=== PATIENT | female | born 1965 | race Caucasian/White ===

== ENCOUNTER 2024-08-23 09:53 | Emergency (ER) | payer OTHER, SELFPAY ==
--- NOTE | 2024-08-23 11:00 | ED.GENMED ---
History of Present Illness
General
Chief Complaint: Musculo-Skeletal Complaint
Source: patient
Time Seen by Provider: 08/23/24 10:43
History of Present Illness
History of Present Illness:
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
resulting in right hand/thumb injury, increased pain and swelling this morning which is what prompted patient to come to the ER. Patient is right-hand dominant and no other injuries were sustained. Denies any head injury or loss of consciousness.
Past History
Past History
ED Past Medical History: Cancer (History of melanoma 2009), Hypercholesterolemia, IDDM, Psychiatric and Other (Migraines)
ED Past Surgical History: Cholecystectomy, Gynecological and Other
Patient has exhibited threatening behavior?: No
PSI?: No
Social History
Tobacco: Smoker
Alcohol: None
Drug: None
Personal: Single
Living: alone
Review of Systems
Review of Systems
All Other Systems: ROS reviewed and negative except as documented in HPI and ROS
Phy Exam
Physical Exam
Physical Exam:
GENERAL: Alert , in no apparent distress
EYE: conjunctiva clear
Head: Normocephalic atraumatic
NECK: Supple,
ENT: mmm.
LUNGS: no acute respiratory distress
NEUROLOGICAL: Alert and oriented
SKIN: Warm and dry, skin intact.
MUSCULOSKELETAL: Right upper extremity: Mild to moderate soft tissue swelling over the base of the thumb extending into the thenar eminence with tenderness directly over this area. Patient has limited range of motion of the thumb including
opposition secondary to the pain. Remainder of digits, wrist, elbow and shoulder are without any signs of trauma. Extremity is otherwise warm and well-perfused and neurovascularly intact.
PSYCH: Normal and appropriate interaction.
Scores
Heart Failure Risk
Heart Failure Risk Score: Not Applicable
Heart Score for Chest Pain Patients
STEMI patient?: Not applicable
Withdrawal Assessment of Alcohol
Withdrawal Assessment Completed?: Not applicable
Course
Orders/Labs/Results
Orders:
Orders
08/23/24 09:56
Hand, Right 3 View [CR Hand - Right Min 3 Views] Urgent
Comment:
Reason For Exam: fall
Vital Signs
Initial and Last Documented VS:
Initial Vital Signs
Pulse Resp BP Pulse Ox
86 18 130/77 98
08/23/24 11:12 08/23/24 11:12 08/23/24 11:12 08/23/24 11:12
Last Documented Vital Signs
Pulse Resp BP Pulse Ox
86 18 130/77 98
08/23/24 11:12 08/23/24 11:12 08/23/24 11:12 08/23/24 11:12
Procedures
Splinting/Sling Placement
Right Thumb:
Procedure completed by: Shree
Pre-splint extermity exam: neurovascular intact
Type of splint: thumb spica
Splint material: other (3 inch Ortho-Glass)
Splint checked by provider?: Yes
Normal distal neurovascular exam?: Yes
MDM/Problems Addressed
Differential Diagnosis Includes:
Sprain, strain, fracture, contusion
MDM/Problems Addressed:
59-year-old female presenting to the ER for evaluation of right hand/thumb injury sustained in accidental fall yesterday. There is considerable edema. X-ray ordered. Will place in splint for comfort. Anticipate need for outpatient orthopedic
follow-up.
*Radiology
Radiology exam reviewed: preliminary read by ED provider (No acute fracture)
*Pulse Oximetry
Patient hypoxic: no
*Critical Care Note
Total Time (30-74mins, 75-104mins- exclusive of procedures): Not Applicable
Patient Management
Escalation/DeEscalation of care consider admission/obs:
No fracture identified on x-ray. Patient splinted as above. Information for orthopedics provided, RICE recommendations as well as NSAIDs/Tylenol as needed for pain. Stable for discharge home.
ED Attending Note
-
Portions of this chart may have been created with voice recognition software.� Occasional wrong word or��sound alike� substitutions may have occurred due to the inherent limitations of voice recognition software.
Discharge Plan
Departure
Patient Disposition: Home (Routine Discharge)
Date of Disposition: 08/23/24
Time of Disposition: 11:00
Patient with high blood pressure during this ER visit?: No
Discharge Problem:
Sprain of hand, thumb, right
Instructions: Sprained Thumb (DC)
Prescriptions:
No Action
Fetzima 80 MG capsule,extended release 24 hr
80 mg PO DAILY
famotidine 40 MG tablet
40 mg PO HS
clonazepam 1 MG tablet
1 mg PO TID
Patient Comments:
03/24/2022: last filled 02/25/22, 90 tabs for 30 days from [id number]
topiramate 25 MG tablet
25 mg PO HS
fenofibrate micronized 200 mg Capsule
200 mg PO DAILY Qty: 0
trazodone 100 MG tablet
50 - 100 mg PO HSPRN PRN (Reason: sleep)
gabapentin 300 MG capsule
300 mg PO HS
metformin 500 MG tablet extended release 24 hr
500 mg PO BID
lisinopril 2.5 MG tablet
2.5 mg PO DAILY
cholestyramine (with sugar) 4 GM powder in packet
4 gm PO DAILY
bupropion HCl 300 MG tablet extended release 24 hr
300 mg PO DAILY
clopidogrel 75 MG tablet
75 mg PO DAILY 21 Days Qty: 21 0RF
pantoprazole 40 MG tablet,delayed release (DR/EC)
40 mg PO BID 30 Days Qty: 60 0RF
aspirin 81 MG tablet,chewable
81 mg PO DAILY 30 Days Qty: 30 0RF
loperamide 2 mg Capsule
2 mg PO QID PRN (Reason: diarrhea)
atorvastatin 10 mg tablet
10 mg PO QPM
prochlorperazine maleate 5 mg Tablet
5 mg PO Q6H PRN (Reason: nausea/vomiting)
lithium carbonate 450 mg tablet extended release
900 mg PO HS
dicyclomine 10 mg Capsule
10 mg PO BID
rizatriptan 5 mg Tablet
5 mg PO DAILY PRN (Reason: migraine)
aripiprazole 5 mg tablet
5 mg PO DAILY
magnesium oxide 400 mg magnesium Tablet
400 mg PO DAILY
Nurtec ODT 75 mg Tablet,Disintegrating
75 mg PO ONCE PRN (Reason: migraine)
azithromycin 250 mg Tablet
500 mg PO DAILY 3 Days Qty: 6 0RF
glucose [Dex4 Glucose] 4 gram tablet,chewable
2 g PO ONCE PRN (Reason: hypoglycemia) 1 Days Qty: 10 0RF
Rx Instructions:
For blood glucose less than 70.
Referrals:
Javid Duenas MD [Active] - (Orthopedist - Please call for appointment JULI)
Interventions
Interventions:
*Risk Screen - Suicide Last Done: 08/23/24 10:09
*Neglect/Abuse Screening Last Done: 08/23/24 10:09
*Nursing Disposition Last Done: 08/23/24 11:41
ED-Musculoskeletal Assessment Last Done: 08/23/24 11:40
Discharge Date and Time
Discharge Date/Time: 08/23/24 11:42
Print Language: TAJIK
[2024-08-23 11:12] VITALS: BP 130/77
== END 2024-08-23 11:42 | disposition home or self-care (01) ==
LOC: EMR 09:53
PROVIDERS: EMERGENCY PHYSICIAN Emergency Medicine; FAMILY PHYSICIAN Family Medicine
DX: S63.601A Unspecified sprain of right thumb, initial encounter (principal); W19.XXXA Unspecified fall, initial encounter; E78.00 Pure hypercholesterolemia, unspecified; E11.9 Type 2 diabetes mellitus without complications; F17.200 Nicotine dependence, unspecified, uncomplicated; Z85.820 Personal history of malignant melanoma of skin; Z90.49 Acquired absence of other specified parts of digestive tract
CPT/HCPCS: 99283; 29125; 73130

== ENCOUNTER → 2025-04-08 16:29 | Outpatient (REF) | payer MEDICARE, SELFPAY | LOC: PAVMRI 16:29 | PROVIDERS: ATTENDING PHYSICIAN Nurse Practitioner Adult Health; FAMILY PHYSICIAN Family Medicine | DX: G43.109 Migraine with aura, not intractable, without status migrainosus (principal); I67.1 Cerebral aneurysm, nonruptured | CPT/HCPCS: 70544 ==